=== PATIENT | female | born 1965 | race Caucasian/White ===

== ENCOUNTER 2016-09-21 17:53 | Emergency (ER) | payer BC ==
[2016-09-21] MEDS ORDERED: Sodium Chloride 0.9% 2.5 ML Syringe FLUSH PRN ×2 (19:10)
[2016-09-21] MEDS ORDERED: Sodium Chloride 0.9% 10 ML Syringe FLUSH PRN ×2 (19:10)
--- NOTE | 2016-09-21 19:32 | EDM.PDOC ---
ED HPI GENERAL MEDICAL PROBLEM - General Chief Complaint: General Stated Complaint: ELEVATED PRESSURE Time Seen by Provider: 09/21/16 19:06 Source of Information: Reports: Patient History Limitations: Reports: No limitations - History of Present Illness INITIAL COMMENTS - FREE TEXT/NARRATIVE: 51-year-old female with a history of hypertension, compliant with her antihypertensive regimen, also with a history of hypothyroidism compliant with her Synthroid, now presents emergent [facility] for evaluation of uncontrolled hypertension. Patient was seen in outpatient setting and her blood pressure was appreciated to be elevated. She was asymptomatic however the practitioner referred her to the ED for evaluation because of this elevated blood pressure. Patient continues to be asymptomatic. No visual changes chest pain shortness of air headache or dizziness. No focal weakness or difficulty with speech or coordination. - Related Data Allergies Allergy/AdvReac Type Severity Reaction Status Date / Time No Known Allergies Allergy Verified 07/15/15 09:19 Home Meds: Home Meds Levothyroxine 1 tab PO DAILY 03/09/14 [History] Telmisartan 80 mg PO DAILY 09/21/16 [History] Past Medical History Cardiovascular History: Reports: Hypertension Other Respiratory History: 20 yr history of smoking, trying to QUIT taking Wellbutrin, 'down to 1/2 pack per day' Gastrointestinal History: Reports: Pancreatitis Other Gastrointestinal History: Abdominal pain Other Musculoskeletal History: rib Neurological History: Reports: Migraines Other Neuro History: "no migraines for sometime" Other Psychiatric History: REports taking Wellbutrin for Smoking cessation Endocrine/Metabolic History: Reports: Hypothyroidism - Past Surgical History HEENT Surgical History: Reports: Tonsillectomy Other Female Surgeries/Procedures: Breast augmentation with implants, report "left deflated' Social & Family History - Tobacco Use Smoking Status *Q: Current Every Day Smoker Years of Tobacco use: 20 Packs/Tins Daily: 0.5 Used Tobacco, but Quit: No Second Hand Smoke Exposure: Yes - Alcohol Use Days Per Week of Alcohol Use: 7 Number of Drinks Per Day: 2 Total Drinks Per Week: 14 - Recreational Drug Use Recreational Drug Use: No Drug Use in Last 12 Months: No ED ROS GENERAL - Review of Systems Review Of Systems: See Below (Per history of present illness) ED EXAM, GENERAL - Physical Exam Exam: See Below (Per history of present illness) Course - Vital Signs Text/Narrative:: Signs and symptoms consistent with hypertensive urgency in an asymptomatic patient. Extensive workup including EKG unremarkable. EKG shows normal sinus rhythm and 96 normal axis and no STEMI. Interpreted by me. Remainder workup including troponin all negative. Patient continues to be asymptomatic on multiple reevaluation and smiling and comfortable prior to discharge with slightly improve blood pressure and clinically stable discussed with patient critical importance of close followup with primary care for reevaluation and to adjust and address her antihypertensive pharmacologic regimen as needed.. No further workup or treatment indicated at this time patient agrees with outpatient followup. Strict return precautions given Last Recorded V/S: Last Vital Signs Temp 36.4 C 09/21/16 19:03 Pulse 81 09/21/16 21:28 Resp 16 09/21/16 21:28 BP 167/98 H 09/21/16 21:28 Pulse Ox 97 09/21/16 21:28 - Orders/Labs/Meds Orders: Active Orders 24 hr Category Date Time Status EKG Documentation Completion [RC] STAT Care 09/21/16 19:11 Active Peripheral IV Care [RC] . DIRECTED Care 09/21/16 19:11 Active Peripheral IV Insertion Adult [OM.PC] Stat Oth 09/21/16 19:11 Ordered Labs: Laboratory Tests 09/21/16 09/21/16 09/21/16 Range/Units 19:20 19:50 19:50 Hgb 14.3 (12.0-16.0) g/dL Hct 42.9 (36.0-46.0) % Sodium 140 (136-146) mmol/L Potassium 3.8 (3.5-5.1) mmol/L Chloride 106 (98-110) mmol/L Carbon Dioxide 22 (21-31) mmol/L BUN 17 (6.0-23.0) mg/dL Creatinine 0.7 (0.6-1.5) mg/dL Est Cr Clr Drug Dosing 83.63 mL/min Estimated GFR (MDRD) > 60.0 ml/min Glucose 97 (60-110) mg/dL Calcium 9.6 (8.8-10.8) mg/dL Troponin I < 0.10 (0.0-0.29) NG/ML Meds: Medications Discontinued Medications Generic Name Dose Route Start Last Admin Trade Name Freq PRN Reason Stop Dose Admin Sodium Chloride 10 ml 09/21/16 19:10 Saline Flush FLUSH ASDIRECTED PRN Keep Vein Open Sodium Chloride 2.5 ml 09/21/16 19:10 Saline Flush FLUSH ASDIRECTED PRN Keep Vein Open Sodium Chloride 10 ml 09/21/16 19:10 Saline Flush FLUSH ASDIRECTED PRN Keep Vein Open Sodium Chloride 2.5 ml 09/21/16 19:10 Saline Flush FLUSH ASDIRECTED PRN Keep Vein Open Departure - Departure Time of Disposition: 21:01 Disposition: Home, Self-Care 01 Condition: good Clinical Impression: Uncontrolled hypertension Instructions: Hypertension Referrals: PCP,None [Primary Care Provider] - Forms: ED Department Discharge Additional Instructions: Her blood pressure is uncontrolled today. The value upon discharge was 181/102. This is definitely not ideally controlled however it is does not represent an emergency requires further treatment in the emergency department. Your workup to rule out any emergency findings is unremarkable this means that nothing further needs to be done right now however is critically important that you followup with your Dr. for reevaluation and further therapy as needed to optimize blood pressure control for your long-term health. followup with your Dr. tomorrow and return immediately for new severe or worsening symptoms - My Orders Last 24 Hours: My Active Orders 09/21/16 19:11 EKG Documentation Completion [RC] STAT Peripheral IV Care [RC] . DIRECTED Peripheral IV Insertion Adult [OM.PC] Stat - Assessment/Plan Last 24 Hours: My Active Orders 09/21/16 19:11 EKG Documentation Completion [RC] STAT Peripheral IV Care [RC] . DIRECTED Peripheral IV Insertion Adult [OM.PC] Stat
[2016-09-21 20:17] LABS: CHLORIDE,CL 106 mmol/L (98-110); SODIUM,NA 140 mmol/L (136-146)
[2016-09-21] MEDS ORDERED: Levofloxacin/Dextrose 5%-Water 500 MG in Premix Bag 1 BAG IV ONE (21:06)
[2016-09-21] MEDS ORDERED: Clindamycin Phosphate in D5W 600 MG in Premix Bag 50 BAG IV ONE ×2 (21:07)
[2016-09-21 21:32] VITALS: BP 167/98
== END 2016-09-21 21:32 | disposition home or self-care (01) ==
LOC: MW.ED 17:53
DX: I10 Essential (primary) hypertension (principal); E03.9 Hypothyroidism, unspecified; Z98.890 Other specified postprocedural states; F17.210 Nicotine dependence, cigarettes, uncomplicated
CPT/HCPCS: 36415; 80048; 84484; 85014; 85018; 93005; 99282; 99284-25

== ENCOUNTER 2018-01-21 06:52 | Day surgery (SDC) | payer BC, OTHER ==
[~2018-01-21 06:52] MED LIST: Lactated Ringers 1,000 ML IV SCH
[2018-01-21] MEDS ORDERED: Propofol 200 MG/20 ML SDV ONE ×2 (07:14→08:13)
[2018-01-21] MEDS ORDERED: Midazolam 1 MG/ML 2 ML SDV ONE (07:14)
[2018-01-21] MEDS ORDERED: fentaNYL 100 MCG/2 ML SDV ONE (07:14)
--- NOTE | 2018-01-21 07:47 | PCM.PREANE ---
Preanesthetic Assessment - Procedure Proposed Procedure: Colonoscopy - Anesthesia/Transfusion/Family Hx Anesthesia History: Prior Anesthesia Without Reaction Other Type of Anesthesia Reaction Comment: Denies any known problem in the past Family History of Anesthesia Reaction: No Transfusion History: No Prior Transfusion(s) Intubation History: Unknown - Review of Systems General: Other (Colon issues, s/p smoking since 2017) Pulmonary: Other (past chronic smoking) Cardiovascular: No Symptoms Gastrointestinal: Diarrhea, Other (s/p acute pancreatitis early 2017) Neurological: No Symptoms Other: Reports: Thyroid Problems (reported hypothroid but not on any meds) - Physical Assessment NPO Status Date: 01/20/18 NPO Status Time: 22:00 O2 Sat by Pulse Oximetry: 98 Respiratory Rate: 16 Vital Signs: Last Vital Signs Temp 97.5 F 01/21/18 07:19 Pulse 100 01/21/18 07:19 Resp 16 01/21/18 07:19 BP 107/80 01/21/18 07:19 Pulse Ox 98 01/21/18 07:19 Height: 5 ft 5 in Weight: 148 lb ASA Class: 3 Mental Status: Alert & Oriented x3 Airway Class: Mallampati = 1 Dentition: Reports: Normal Dentition Thyro-Mental Finger Breadths: 3 Mouth Opening Finger Breadths: 3 ROM/Head Extension: Full Lungs: Clear to Auscultation, Normal Respiratory Effort Cardiovascular: Regular Rate, Regular Rhythm, No Murmurs Other: minimal venous access, tiny veins - Allergies Allergies/Adverse Reactions: Allergies Allergy/AdvReac Type Severity Reaction Status Date / Time No Known Allergies Allergy Verified 01/15/18 15:59 - Blood Blood Available: No Product(s) Available: None - Anesthesia Plan Pre-Op Medication Ordered: None - Acknowledgements Anesthesia Type Planned: MAC Pt an Appropriate Candidate for the Planned Anesthesia: Yes Alternatives and Risks of Anesthesia Discussed w Pt/Guardian: Yes Pt/Guardian Understands and Agrees with Anesthesia Plan: Yes PreAnesthesia Questionnaire Cardiovascular History: Reports: Hypertension Respiratory History: Reports: Other (See Below) Other Respiratory History: states COPD has not been officially diagnosed Gastrointestinal History: Reports: Chronic Diarrhea, Pancreatitis Other Gastrointestinal History: recent hospitalization for pancreatitis, states hx of colitis Musculoskeletal History: Reports: Fracture Other Musculoskeletal History: hx of fx rib and toe Neurological History: Reports: Migraines Other Neuro History: "no migraines for sometime" Other Psychiatric History: REports taking Wellbutrin for Smoking cessation Endocrine/Metabolic History: Reports: Hypothyroidism Dermatologic History: Reports: Other (See Below) Other Dermatologic History: heat rash on legs in the summer - Past Surgical History Head Surgeries/Procedures: Reports: None HEENT Surgical History: Reports: Tonsillectomy GI Surgical History: Reports: Cholecystectomy, Colonoscopy, EGD Female Surgical History: Reports: Breast Implant, Tubal Ligation Other Female Surgeries/Procedures: Breast augmentation with implants, report "left deflated' - SUBSTANCE USE Smoking Status *Q: Former Smoker Tobacco Use Within Last Twelve Months: Cigarettes Recreational Drug Use History: No - HOME MEDS Home Medications: Home Meds Glycopyrrolate/Formoterol Fum [Bevespi Aerosphere Inhaler] 2 puff INH BID [History] Levothyroxine Sodium [Synthroid] 175 mcg PO QAM 01/15/18 [History] Losartan/Hydrochlorothiazide [Losartan-HCTZ 50-12.5 MG] 1 tab PO QAM 01/15/18 [ History] - CURRENT (IN HOUSE) MEDS Current Meds: Current Medications Lactated Ringer's (Ringers, Lactated) 1,000 mls @ 125 mls/hr IV ASDIRECTED MAGY Last Admin: 01/21/18 07:24 Dose: 125 mls/hr Discontinued Medications Fentanyl (Sublimaze) Confirm Administered Dose 100 mcg .ROUTE .STK-MED ONE Stop: 01/21/18 07:15 Midazolam HCl (Versed 1 Mg/Ml) Confirm Administered Dose 2 mg .ROUTE .STK-MED ONE Stop: 01/21/18 07:15 Propofol (Diprivan 20 Ml) Confirm Administered Dose 200 mg .ROUTE .STK-MED ONE Stop: 01/21/18 07:15
[2018-01-21] MEDS ORDERED: Lactated Ringers 1,000 ML IV SCH (08:30)
--- NOTE | 2018-01-21 08:30 | PCM.OPNOTE ---
- General Post-Op/Procedure Note Date of Surgery/Procedure: 01/21/18 Operative Procedure(s): Colonoscopy with random biopsies Pre Op Diagnosis: Personal history of colitis. Post-Op Diagnosis: Nonspecific colitis. Mild sigmoid diverticulosis. Anesthesia Technique: MAC (ASA III) Condition: Good Free Text/Narrative:: DICTATION 253252 CPT CODE 43159
[2018-01-21 08:55] VITALS: BP 98/62
--- NOTE | 2018-01-21 09:22 | PCM48HPAN ---
Post Anesthesia Note - EVALUATION WITHIN 48HRS OF ANESTHETIC Vital Signs in Normal Range: Yes Patient Participated in Evaluation: Yes Respiratory Function Stable: Yes Airway Patent: Yes Cardiovascular Function Stable: Yes Hydration Status Stable: Yes Pain Control Satisfactory: Yes Nausea and Vomiting Control Satisfactory: Yes Mental Status Recovered: Yes Resp Rate: 14
--- NOTE | 2018-01-21 09:22 | PCM.POSTAN ---
POST ANESTHESIA ASSESSMENT - MENTAL STATUS Mental Status: Alert, Oriented - RESPIRATORY Respiratory Status: Respiratory Rate WNL, Airway Patent, O2 Saturation Stable - CARDIOVASCULAR CV Status: Pulse Rate WNL, Blood Pressure Stable - GASTROINTESTINAL GI Status: No Symptoms - POST OP HYDRATION Hydration Status: Adequate & Stable
--- NOTE | 2018-01-21 11:05 | OR ---
SURGEON: Julio Castillo M.D. DATE OF PROCEDURE: 01/21/2018 OPERATION PERFORMED: Colonoscopy with multiple random biopsies. ANESTHESIA: MAC. ASA CLASSIFICATION: III. PREOPERATIVE DIAGNOSIS: Personal history of colitis. POSTOPERATIVE DIAGNOSES: 1. Nonspecific colitis. 2. Sigmoid diverticulosis. DESCRIPTION OF PROCEDURE: The patient was taken to the endoscopy room, positioned on the endoscopy table in the left lateral decubitus position. Time-out was called for appropriate identification of the patient and procedure. Monitored anesthesia care was provided. The colonoscope was inserted into the rectum and advanced with minimal difficulty to the cecum where the colonoscope was retroflexed to visualize the ascending colon from below. The colonoscope was then straightened and slowly withdrawn. Random biopsies were obtained from the cecum, ascending colon, and sigmoid colon. Once the colonoscope was straightened, it was slowly withdrawn carefully visualizing the cecum, ascending colon, hepatic flexure, transverse colon, splenic flexure, descending colon, sigmoid colon, and rectum. No tumors or polyps were encountered. There were some mild nonspecific changes and random biopsies were obtained as described above. A few small scattered diverticula were noted in the sigmoid colon. Once the colonoscope was withdrawn to the rectum, it was retroflexed to visualize the anal orifice from above. Again, no tumors or polyps were seen. There were some chronic hemorrhoidal changes, but no acute changes. The colonoscope was then straightened, the rectum aspirated, and the colonoscope removed. The patient tolerated the procedure well and was taken to recovery room in satisfactory condition. SHARON / MOISE /[id number]
== END 2018-01-21 09:10 | disposition home or self-care (01) ==
LOC: MW.SDS 06:52
PROVIDERS: ATTEND Surgery
DX: K52.9 Noninfective gastroenteritis and colitis, unspecified (principal); K57.30 Diverticulosis of large intestine without perforation or abscess without bleeding; I10 Essential (primary) hypertension; J44.9 Chronic obstructive pulmonary disease, unspecified; E03.9 Hypothyroidism, unspecified; G43.909 Migraine, unspecified, not intractable, without status migrainosus; F17.210 Nicotine dependence, cigarettes, uncomplicated; Z79.899 Other long term (current) drug therapy; Z80.0 Family history of malignant neoplasm of digestive organs
CPT/HCPCS: 45380; 88305; J2250; J2704; J3010; J7120; 00811

== ENCOUNTER 2020-08-26 10:06 | Emergency (ER) | payer BC ==
[2020-08-26] MEDS ORDERED: Acetaminophen/oxyCODONE 325-5 MG Tab PO ONE (10:15)
--- NOTE | 2020-08-26 10:17 | EDM.PDOC ---
ED HPI GENERAL MEDICAL PROBLEM - General Chief Complaint: Upper Extremity Injury/Pain Stated Complaint: BROKEN LEFT WRIST Time Seen by Provider: 08/26/20 10:09 Source of Information: Reports: Patient History Limitations: Reports: No Limitations - History of Present Illness INITIAL COMMENTS - FREE TEXT/NARRATIVE: Patient is a 55-year-old female who presents today for obvious left wrist deformity. Patient that she fell on outstretched hand. Patient denies any other injuries. Patient states she has sensation is to move her fingers but does have increased pain to the arm. Left Wrist Pain Score (Numeric/FACES): 10 - Related Data Allergies Allergy/AdvReac Type Severity Reaction Status Date / Time No Known Allergies Allergy Verified 08/26/20 10:22 Home Meds: Home Meds Glycopyrrolate/Formoterol Fum [Bevespi Aerosphere Inhaler] 2 puff INH BID 01/15/18 [History] Levothyroxine Sodium [Synthroid] 175 mcg PO QAM 01/15/18 [History] Losartan/Hydrochlorothiazide [Losartan-HCTZ 50-12.5 MG] 1 tab PO QAM 01/15/18 [History] Acetaminophen/HYDROcodone [[place] 325-5 MG] 1 tab PO Q6H PRN 5 Days #20 tablet 08/26/20 [Rx] Naproxen Sodium [Naproxen Sodium ER] 500 mg PO BID PRN 10 Days #20 tablet.er 08/26/20 [Rx] Past Medical History Cardiovascular History: Reports: Hypertension Respiratory History: Reports: Other (See Below) Other Respiratory History: states COPD has not been officially diagnosed Gastrointestinal History: Reports: Chronic Diarrhea, Pancreatitis Other Gastrointestinal History: recent hospitalization for pancreatitis, states hx of colitis Musculoskeletal History: Reports: Fracture Other Musculoskeletal History: hx of fx rib and toe Neurological History: Reports: Migraines Other Neuro History: "no migraines for sometime" Other Psychiatric History: REports taking Wellbutrin for Smoking cessation Endocrine/Metabolic History: Reports: Hypothyroidism Dermatologic History: Reports: Other (See Below) Other Dermatologic History: heat rash on legs in the summer - Past Surgical History Head Surgeries/Procedures: Reports: None HEENT Surgical History: Reports: Tonsillectomy GI Surgical History: Reports: Cholecystectomy, Colonoscopy, EGD Female Surgical History: Reports: Breast Implant, Tubal Ligation Other Female Surgeries/Procedures: Breast augmentation with implants, report "left deflated' Review of Systems - Review of Systems Review Of Systems: See Below Constitutional: Reports: No Symptoms Eyes: Reports: No Symptoms Ears: Reports: No Symptoms Nose: Reports: No Symptoms Mouth/Throat: Reports: No Symptoms Respiratory: Reports: No Symptoms Cardiovascular: Reports: No Symptoms GI/Abdominal: Reports: No Symptoms Genitourinary: Reports: No Symptoms Musculoskeletal: Reports: Arm Pain Skin: Reports: No Symptoms Neurological: Reports: No Symptoms Psychiatric: Reports: No Symptoms ED EXAM, GENERAL - Physical Exam Exam: See Below Exam Limited By: No Limitations General Appearance: Alert, Mild Distress Head: Atraumatic Neck: Normal Inspection, Non-Tender Respiratory/Chest: No Respiratory Distress, Lungs Clear Cardiovascular: Normal Peripheral Pulses, Regular Rate, Rhythm Peripheral Pulses: 2+: Radial (L), Radial (R) GI/Abdominal: Normal Bowel Sounds Extremities: Arm Pain (left wrist deformity pulse present no skin break ) ED TRAUMA EXTREMITY PROCEDURES - Joint Reduction Wrist Sedation: Conscious Sedation Pre-Procedure NV Status: Normal Post-Procedure NV Status: Normal Technique: Traction/Counter Traction Number of Attempts: 1 Post-Reduction Imaging: Acceptably Reduced Joint Reduction Complications: No Course - Vital Signs Last Recorded V/S: Last Vital Signs Temp 97 F 08/26/20 10:26 Pulse 75 08/26/20 11:39 Resp 16 08/26/20 11:39 BP 126/76 08/26/20 11:39 Pulse Ox 98 08/26/20 11:39 - Orders/Labs/Meds Orders: Active Orders 24 hr Category Date Time Status Verify Patient Consent Obtain [RC] ASDIRECTED Care 08/26/20 11:17 Active Sodium Chloride 0.9% [Normal Saline] 1,000 ml Med 08/26/20 11:15 Active IV ASDIRECTED DME for Discharge [COMM] Stat Oth 08/26/20 12:21 Ordered Medication Administration Instruction [OM.PC] Routine Oth 08/26/20 11:17 Ordered Medication Orders Sodium Chloride (Normal Saline) 1,000 mls @ 1,000 mls/hr IV ASDIRECTED MAGY Last Admin: 08/26/20 11:05 Dose: 1,000 mls/hr Documented by: SUNNY Labs: Laboratory Tests 08/26/20 08/26/20 Range/Units 11:26 11:26 WBC 7.56 (4.0-11.0) K/uL RBC 4.34 (4.30-5.90) M/uL Hgb 13.9 (12.0-16.0) g/dL Hct 41.0 (36.0-46.0) % MCV 94.5 (80.0-98.0) fL MCH 32.0 (27.0-32.0) pg MCHC 33.9 (31.0-37.0) g/dL RDW Std Deviation 44.2 (28.0-62.0) fl RDW Coeff of Savita 13 (11.0-15.0) % Plt Count 252 (150-400) K/uL MPV 10.10 (7.40-12.00) fL Neut % (Auto) 63.0 (48.0-80.0) % Lymph % (Auto) 25.1 (16.0-40.0) % Frio % (Auto) 9.8 (0.0-15.0) % Eos % (Auto) 1.6 (0.0-7.0) % Baso % (Auto) 0.5 (0.0-1.5) % Neut # (Auto) 4.8 (1.4-5.7) K/uL Lymph # (Auto) 1.9 (0.6-2.4) K/uL Frio # (Auto) 0.7 (0.0-0.8) K/uL Eos # (Auto) 0.1 (0.0-0.7) K/uL Baso # (Auto) 0.0 (0.0-0.1) K/uL Nucleated RBC % 0.0 /100WBC Nucleated RBCs # 0 K/uL Sodium 141 (136-145) mmol/L Potassium 2.9 L (3.5-5.1) mmol/L Chloride 105 (98-107) mmol/L Carbon Dioxide 22.6 (21.0-32.0) mmol/L BUN 12 (7.0-18.0) mg/dL Creatinine 0.8 (0.6-1.0) mg/dL Est Cr Clr Drug Dosing 69.81 mL/min Estimated GFR (MDRD) > 60.0 ml/min Glucose 137 H (74-106) mg/dL Calcium 9.2 (8.5-10.1) mg/dL Meds: Medications Generic Name Dose Route Start Last Admin Trade Name Allen PRN Reason Stop Dose Admin Sodium Chloride 1,000 mls @ 1,000 mls/hr 08/26/20 11:15 08/26/20 11:05 Normal Saline IV 1,000 mls/hr ASDIRECTED MAGY Administration Discontinued Medications Generic Name Dose Route Start Last Admin Trade Name Allen PRN Reason Stop Dose Admin Fentanyl Confirm 08/26/20 11:21 08/26/20 12:20 Sublimaze Administered 08/26/20 11:22 Not Given Dose 100 mcg .ROUTE .STK-MED ONE Midazolam HCl Confirm 08/26/20 11:20 08/26/20 12:20 Versed 1 Mg/Ml Administered 08/26/20 11:21 Not Given Dose 2 mg .ROUTE .STK-MED ONE Morphine Sulfate Confirm 08/26/20 10:21 08/26/20 10:26 Morphine Administered 08/26/20 10:22 Not Given Dose 4 mg .ROUTE .STK-MED ONE Morphine Sulfate 4 mg 08/26/20 10:22 08/26/20 10:24 Morphine IVPUSH 08/26/20 10:23 4 mg ONETIME ONE Administration Oxycodone/Acetaminophen 1 tab 08/26/20 10:15 08/26/20 10:52 Percocet 325-5 Mg PO 08/26/20 10:16 Not Given ONETIME ONE Propofol Confirm 08/26/20 11:19 08/26/20 12:20 Diprivan 20 Ml Administered 08/26/20 11:20 Not Given Dose 200 mg .ROUTE .STK-MED ONE - Re-Assessments/Exams Free Text/Narrative Re-Assessment/Exam: 08/26/20 12:20 Pt's wrist was reduced at the bedside and placed in a splint. [facility] and [facility] can [facility] patient [facility]. Patient given strict return precautions. What you are ordering wrist splint Why you are ordering it help with alignment and pain How it will benefit patient keep reduction in place How long is patient to use it 7-10 days Departure - Departure Time of Disposition: 12:18 Disposition: Home, Self-Care 01 Condition: Good Clinical Impression: Radius fracture - Discharge Information *PRESCRIPTION DRUG MONITORING PROGRAM REVIEWED*: Not Applicable *COPY OF PRESCRIPTION DRUG MONITORING REPORT IN PATIENT DOUGIE: Not Applicable Prescriptions: Naproxen Sodium [Naproxen Sodium ER] 500 mg PO BID PRN 10 Days #20 tablet.er PRN Reason: Pain (Moderate 4-6) Acetaminophen/HYDROcodone [[place] 325-5 MG] 1 tab PO Q6H PRN 5 Days #20 tablet PRN Reason: Pain (Severe 7-10) Instructions: Closed Reduction for Wrist or Forearm, Care After Referrals: PCP,None [Primary Care Provider] - Forms: ED Department Discharge Additional Instructions: The following information is given to patients seen in the emergency department who are being discharged to home. This information is to outline your options for follow-up care. We provide all patients seen in our emergency department with a follow-up referral. The need for follow-up, as well as the timing and circumstances, are variable depending upon the specifics of your emergency department visit. If you don't have a primary care physician on staff, we will provide you with a referral. We always advise you to contact your personal physician following an emergency department visit to inform them of the circumstance of the visit and for follow-up with them and/or the need for any referrals to a consulting specialist. The emergency department will also refer you to a specialist when appropriate. This referral assures that you have the opportunity for follow-up care with a specialist. All of these measure are taken in an effort to provide you with optimal care, which includes your follow-up. Under all circumstances we always encourage you to contact your private physician who remains a resource for coordinating your care. When calling for follow-up care, please make the office aware that this follow-up is from your recent emergency room visit. If for any reason you are refused follow-up, please contact the [facility] Emergency Department at and asked to speak to the emergency department charge nurse. Please follow up with your primary care physician. If you do not have a primary care physician, see below: Dr. Elaine Aponte [facility] [address] [place] [id number] Please call the number above today to get appointment they should be the see tomorrow in clinic if you have any increased pain numbness your hand please return to the ED. Sepsis Event Note (ED) - Focused Exam Vital Signs: Vital Signs Temp Pulse Resp BP Pulse Ox 08/26/20 11:39 75 16 126/76 98 08/26/20 11:14 76 16 110/70 98 08/26/20 10:26 97 F 72 16 102/64 99 - My Orders Last 24 Hours: My Active Orders 08/26/20 11:15 Sodium Chloride 0.9% [Normal Saline] 1,000 ml IV ASDIRECTED 08/26/20 12:21 DME for Discharge [COMM] Stat - Assessment/Plan Last 24 Hours: My Active Orders 08/26/20 11:15 Sodium Chloride 0.9% [Normal Saline] 1,000 ml IV ASDIRECTED 08/26/20 12:21 DME for Discharge [COMM] Stat Plan: Is a 55-year-old female presents today for left wrist deformity. Will obtain x- ray and likely need reduction.
[2020-08-26] MEDS ORDERED: Morphine 4 MG/ML Syringe ONE (10:21)
[2020-08-26] MEDS ORDERED: Morphine 4 MG/ML Syringe IVPUSH ONE (10:22)
[2020-08-26] MEDS ORDERED: Sodium Chloride 0.9% 1,000 ML IV SCH (11:15)
--- NOTE | 2020-08-26 11:17 | PCM.PREANE ---
Preanesthetic Assessment - Anesthesia/Transfusion/Family Hx Anesthesia History: Prior Anesthesia Without Reaction Other Type of Anesthesia Reaction Comment: Denies any known problem in the past Family History of Anesthesia Reaction: No Transfusion History: No Prior Transfusion(s) Intubation History: Unknown - Review of Systems General: No Symptoms Pulmonary: No Symptoms Cardiovascular: No Symptoms Gastrointestinal: No Symptoms Neurological: No Symptoms Other: Reports: None - Physical Assessment NPO Status Date: 08/26/20 NPO Status Time: 09:00 (Clears, small amount of popcorn) Vital Signs: Last Vital Signs Temp 97 F 08/26/20 10:26 Pulse 72 08/26/20 10:26 Resp 16 08/26/20 10:26 BP 102/64 08/26/20 10:26 Pulse Ox 99 08/26/20 10:26 Height: 5 ft 5 in Weight: 79.379 kg ASA Class: 2E Mental Status: Alert & Oriented x3 Airway Class: Mallampati = 2 Dentition: Reports: Normal Dentition Thyro-Mental Finger Breadths: 3 Mouth Opening Finger Breadths: 3 ROM/Head Extension: Full Lungs: Clear to Auscultation, Normal Respiratory Effort Cardiovascular: Regular Rate, Regular Rhythm - Allergies Allergies/Adverse Reactions: Allergies Allergy/AdvReac Type Severity Reaction Status Date / Time No Known Allergies Allergy Verified 08/26/20 10:22 - Acknowledgements Anesthesia Type Planned: MAC Pt an Appropriate Candidate for the Planned Anesthesia: Yes Alternatives and Risks of Anesthesia Discussed w Pt/Guardian: Yes Pt/Guardian Understands and Agrees with Anesthesia Plan: Yes PreAnesthesia Questionnaire HEENT History: Reports: None Cardiovascular History: Reports: Hypertension Respiratory History: Reports: Other (See Below) Other Respiratory History: states COPD has not been officially diagnosed Gastrointestinal History: Reports: Chronic Diarrhea, Pancreatitis Other Gastrointestinal History: recent hospitalization for pancreatitis, states hx of colitis Genitourinary History: Reports: None Musculoskeletal History: Reports: Fracture Other Musculoskeletal History: hx of fx rib and toe Neurological History: Reports: Migraines Other Neuro History: "no migraines for sometime" Other Psychiatric History: REports taking Wellbutrin for Smoking cessation Endocrine/Metabolic History: Reports: Hypothyroidism Hematologic History: Reports: None Immunologic History: Reports: None Oncologic (Cancer) History: Reports: None Dermatologic History: Reports: Other (See Below) Other Dermatologic History: heat rash on legs in the summer - Infectious Disease History Infectious Disease History: Reports: Chicken Pox - Past Surgical History Head Surgeries/Procedures: Reports: None HEENT Surgical History: Reports: Tonsillectomy GI Surgical History: Reports: Cholecystectomy, Colonoscopy, EGD Female Surgical History: Reports: Breast Implant, Tubal Ligation Other Female Surgeries/Procedures: Breast augmentation with implants, report "left deflated' - SUBSTANCE USE Tobacco Use Within Last Twelve Months: Vaping Recreational Drug Use History: No - HOME MEDS Home Medications: Home Meds Glycopyrrolate/Formoterol Fum [Bevespi Aerosphere Inhaler] 2 puff INH BID 01/15/18 [History] Levothyroxine Sodium [Synthroid] 175 mcg PO QAM 01/15/18 [History] Losartan/Hydrochlorothiazide [Losartan-HCTZ 50-12.5 MG] 1 tab PO QAM 01/15/18 [History] - CURRENT (IN HOUSE) MEDS Current Meds: Current Medications Sodium Chloride (Normal Saline) 1,000 mls @ 1,000 mls/hr IV ASDIRECTED [facility] Last Admin: 08/26/20 11:05 Dose: 1,000 mls/hr Documented by: Discontinued Medications Morphine Sulfate (Morphine) Confirm Administered Dose 4 mg .ROUTE .STK-MED ONE Stop: 08/26/20 10:22 Last Admin: 08/26/20 10:26 Dose: Not Given Documented by: Morphine Sulfate (Morphine) 4 mg IVPUSH ONETIME ONE Stop: 08/26/20 10:23 Last Admin: 08/26/20 10:24 Dose: 4 mg Documented by: Oxycodone/Acetaminophen (Percocet 325-5 Mg) 1 tab PO ONETIME ONE Stop: 08/26/20 10:16 Last Admin: 08/26/20 10:52 Dose: Not Given Documented by:
--- NOTE | 2020-08-26 11:17 | CR ---
INDICATION: Injury. Pain. COMPARISON: None. TECHNIQUE: Left wrist 2 views. FINDINGS: Comminuted, impacted, displaced, intra-articular distal radius fracture. There is dorsal displacement of the distal fracture fragment best seen on lateral view measuring approximately 1.5 cm. Soft tissue swelling. IMPRESSION: Comminuted, displaced, intra-articular distal radius fracture. Dictated by Robbie Chavez MD @ Aug 26 2020 11:14AM Signed by Dr. Robbie Chavez @ Aug 26 2020 11:15AM
[2020-08-26] MEDS ORDERED: Propofol 200 MG/20 ML SDV ONE (11:19)
[2020-08-26] MEDS ORDERED: Midazolam 1 MG/ML 2 ML SDV ONE (11:20)
[2020-08-26] MEDS ORDERED: fentaNYL 100 MCG/2 ML SDV ONE (11:21)
--- NOTE | 2020-08-26 11:57 | PCM.POSTAN ---
POST ANESTHESIA ASSESSMENT - MENTAL STATUS Mental Status: Alert, Oriented - VITAL SIGNS Vital Signs: Last Vital Signs Temp 36.1 C 08/26/20 10:26 Pulse 75 08/26/20 11:39 Resp 16 08/26/20 11:39 BP 126/76 08/26/20 11:39 Pulse Ox 98 08/26/20 11:39 - RESPIRATORY Respiratory Status: Respiratory Rate WNL, Airway Patent, O2 Saturation Stable - CARDIOVASCULAR CV Status: Pulse Rate WNL, Blood Pressure Stable - GASTROINTESTINAL GI Status: No Symptoms - POST OP HYDRATION Hydration Status: Adequate & Stable - OBSERVATIONS Free Text/Narrative:: No anesthesia complications or concerns at this time.
[2020-08-26 12:10] LABS: BLOOD UREA NITROGEN,BUN 12 mg/dL (7.0-18.0); CARBON DIOXIDE,CO2 22.6 mmol/L (21.0-32.0); CHLORIDE,CL 105 mmol/L (98-107); GLUCOSE RANDOM 137 mg/dL (74-106); POTASSIUM,K 2.9 mmol/L (3.5-5.1); SODIUM,NA 141 mmol/L (136-145)
--- NOTE | 2020-08-26 12:26 | CR ---
Indication: Post reduction Technique: Two views left hand Comparison: Same date aunt 1038 Findings/Impression: : Casting material obscures fine bony detail. Transverse fracture through the distal radius with mild dorsal dislocation of the distal radius fracture, improved compared to the prior exam. Minimally displaced fracture through the ulnar styloid process. Dictated by Jody Keys MD @ Aug 26 2020 12:24PM Signed by Dr. Jody Keys @ Aug 26 2020 12:24PM
[2020-08-26 12:36] VITALS: BP 128/76; PULSE 84
--- NOTE | 2020-08-26 12:39 | PCM48HPAN ---
Post Anesthesia Note - EVALUATION WITHIN 48HRS OF ANESTHETIC Vital Signs in Normal Range: Yes Patient Participated in Evaluation: Yes Respiratory Function Stable: Yes Airway Patent: Yes Cardiovascular Function Stable: Yes Hydration Status Stable: Yes Pain Control Satisfactory: Yes Nausea and Vomiting Control Satisfactory: Yes Mental Status Recovered: Yes Vital Signs: Last Vital Signs Temp 36.1 C 08/26/20 10:26 Pulse 84 08/26/20 12:36 Resp 16 08/26/20 12:36 BP 128/76 08/26/20 12:36 Pulse Ox 98 08/26/20 12:36 - COMMENTS/OBSERVATIONS Free Text/Narrative:: No anesthesia concerns noted.
[2020-08-26] MEDS ORDERED: Potassium Chloride 10% 20 MEQ/15 ML Soln 15 ML UD Cup PO ONE (12:41)
== END 2020-08-26 13:13 | disposition home or self-care (01) ==
LOC: MW.ED 10:06
DX: S52.572A Other intraarticular fracture of lower end of left radius, initial encounter for closed fracture (principal); S52.612A Displaced fracture of left ulna styloid process, initial encounter for closed fracture; I10 Essential (primary) hypertension; J44.9 Chronic obstructive pulmonary disease, unspecified; E03.9 Hypothyroidism, unspecified; Z79.899 Other long term (current) drug therapy; W18.30XA Fall on same level, unspecified, initial encounter
CPT/HCPCS: 25605; 36415; 73100; 80048; 85025; 96374; 99283; J2270; J7030; 01820